=== PATIENT | female | born 1970 | race Caucasian/White ===

== ENCOUNTER 2016-08-17 04:43 | Emergency (ER) | payer OTHER ==
--- NOTE | 2016-08-17 04:51 | PDOC ---
History of Present Illness - History of Present Illness Initial Comments: 08/17/16 05:03 This 45-year-old woman with no past medical history except for gluten sensitivity presents with few hours history of sudden onset left flank pain. Patient states that she was awakened at approximately 3 AM with sharp pain in the left flank radiating to left side of the abdomen. This was accompanied by nausea without vomiting. She denies fever/chills/diarrhea. She has had no dysuria/hematuria/urinary urgency. No chest pain, cough or shortness of breath Although pain became somewhat less severe, she called her PMD who suggested she proceed to the ER. No recent travel or sick contacts. No unusual food ingestion. Recent history notable for abdominal bloating over the last few days. She had rectal urgency yesterday and was incontinent is a small amount of loose stool. She denies any other episodes of frequent or loose stools in recent days. No significant past medical history except for gluten sensitivity On no medications NO KNOWN DRUG ALLERGIES <Chasidy Ernst Last Filed: 08/17/16 06:59> <Bakari Richard Last Filed: 08/17/16 10:10> - General Chief Complaint: Pain, Acute Stated Complaint: LEFT FLANK PAIN RADIATING INTO ABDOMEN Time Seen by Provider: 08/17/16 04:49 Past History <Chasidy Ernst - Last Filed: 08/17/16 06:59> <Bakari Richard Last Filed: 08/17/16 10:10> - Past Medical History Allergies/Adverse Reactions: Allergies Allergy/AdvReac Type Severity Reaction Status Date / Time No Known Allergies Allergy Verified 08/17/16 04:45 Home Medications: Ambulatory Orders NK [No Known Home Medication] 08/17/16 Review of Systems - Review of Systems Able to Perform ROS?: Yes Comments:: 12 point review of systems is negative except for what is noted in the history of present illness <Chasidy Ernst Last Filed: 08/17/16 06:59> *Physical Exam - Physical Exam Comments: GENERAL: The patient is awake, alert, and fully oriented, in mild distress secondary to flank pain. Vital signs as noted. HEAD: Normal with no signs of trauma. EYES: Pupils equal, round and reactive to light, extraocular movements intact, sclera anicteric, conjunctiva clear with no pallor. ENT: moist mucous membranes. Ears normal, nares patent, oropharynx clear without exudates. NECK: Normal range of motion, supple without lymphadenopathy, JVD, or masses. LUNGS: Breath sounds equal, clear to auscultation bilaterally. No wheeze/ crackles. HEART: Regular rate and rhythm, normal S1 and S2 without murmur or rub. ABDOMEN: Soft/nondistended. Mild left lower quadrant tenderness without peritoneal signs. BS wnl. No guarding or rebound. No palpable masses. No hepatosplenomegaly. Moderate left CVA tenderness EXTREMITIES: Normal range of motion, no edema. No clubbing or cyanosis. No cords, erythema, or tenderness. NEUROLOGICAL: Cranial nerves II through XII grossly intact. Normal speech, normal gait. PSYCH: Normal mood, normal affect. SKIN: Warm, Dry, normal turgor, no rashes or lesions noted. <Chasidy Ernst - Last Filed: 08/17/16 06:59> - Vital Signs Last Vital Signs Temp Pulse Resp BP Pulse Ox 97.7 F 69 16 131/76 100 08/17/16 04:47 08/17/16 04:47 08/17/16 04:47 08/17/16 04:47 08/17/16 04:47 <Bakari Richard - Last Filed: 08/17/16 10:10> ED Treatment Course - LABORATORY CBC & Chemistry Diagram: 08/17/16 05:05 08/17/16 05:05 <Chasidy Ernst - Last Filed: 08/17/16 06:59> - LABORATORY CBC & Chemistry Diagram: 08/17/16 05:05 08/17/16 05:05 - ADDITIONAL ORDERS Additional order review: Laboratory Results 08/17/16 08/17/16 08/17/16 05:05 05:05 05:05 Sodium 140 Potassium 3.6 Chloride 104 Carbon Dioxide 27 Anion Gap 9 BUN 13 Creatinine 0.8 Creat Clearance w eGFR > 60 Random Glucose 95 Calcium 8.8 Total Bilirubin 0.4 AST 27 ALT 40 Alkaline Phosphatase 53 Total Protein 6.5 Albumin 4.0 Urine Color Yellow Urine Appearance Clear Urine pH 5.0 Ur Specific Jal 1.027 Urine Protein Negative Urine Glucose (UA) Negative Urine Ketones 1+ H Urine Blood Negative Urine Nitrite Negative Urine Bilirubin Negative Urine Urobilinogen Negative Ur Leukocyte Esterase Negative Urine HCG, Qual Negative 08/17/16 05:05 RBC 3.89 MCV 93.7 MCHC 33.2 RDW 13.4 MPV 10.2 Neutrophils % 58.8 Lymphocytes % 33.0 Monocytes % 7.0 Eosinophils % 0.5 Basophils % 0.7 - Medications Given in the ED: ED Medications Discontinued Medications Generic Name Dose Route Start Last Admin Trade Name Duranq PRN Reason Stop Dose Admin Sodium Chloride 1,000 mls @ 1,000 mls/hr 08/17/16 05:00 08/17/16 05:13 Normal Saline - IV 08/17/16 05:59 1,000 mls/hr ASDIR STA Administration Ketorolac Tromethamine 30 mg 08/17/16 05:00 08/17/16 05:14 Toradol Injection - IVPUSH 08/17/16 05:01 30 mg ONCE ONE Administration <Bakari Richard J - Last Filed: 08/17/16 10:10> Progress Note - Progress Note Progress Note: 45-year-old woman presents by ambulance with a few hour history of sharp left flank pain radiating to the left mid abdomen. This is initially accompanied by nausea which has since resolved. Pain is still present although somewhat milder than on presentation. Exam notable for moderate left CVA tenderness and mild to moderate left lower quadrant tenderness. There are no peritoneal irritation signs and no distention/masses on abdominal exam. Differential diagnosis includes renal colic /ureteral stone/diverticulitis/ other colitis (especially in light of her bloating/rectal urgency in the last few days) CBC/chemistry profile/PGU/UA will be sent Toradol 30 mg IV as well as IV normal saline 1 L will be administered. <Chasidy Ernst J - Last Filed: 08/17/16 06:59> - Progress Note Progress Note: The patient's pain has been completely resolved for some time now. Her abdomen is soft and nontender. Discussed CT results with Dr. Matson. There is no evidence of any kidney or urinary tract abnormality, or intestinal abnormality including diverticulitis. There is a cystic structure that appears to be in the area of the left adnexa or ovary, but with no free fluid. This may be an incidental finding, or may be the cause of the pain if there is minor leakage. This was discussed with the patient. She is aware of the cyst and the need for follow-up with her [employer] physician. She has an [employer], and agrees to follow-up in a timely fashion with discussion of the cyst and further examination and testing is necessary. She is fully ambulatory and in no pain upon discharge and agrees to follow-up as directed. In case this is GI related, clear liquids and light diet were recommended for another 24 hours. Return to the emergency room <Bakari Richard - Last Filed: 08/17/16 10:10> Medical Decision Making - Medical Decision Making 08/17/16 06:18 Patient feeling better after 30 mg Toradol IV. 1 L of normal saline has been given IV. Urinalysis shows no evidence of hematuria. Specific gravity is 1.027 but no other abnormalities on dipstick other than 1+ ketones CBC normal without elevation of white blood cell count or other abnormalities Because of patient's significant tenderness on exam, abdominal/pelvic CT with oral contrast will be performed to evaluate for hydronephrosis after passage of stone,acute diverticulitis or other acute intra-abdominal processes 08/17/16 06:34 Chemistry profile is essentially normal The patient is tolerating oral contrast without recurrence of nausea. 08/17/16 06:59 Case signed out to Dr Richard at end of shift. <Chasidy Ernst - Last Filed: 08/17/16 06:59> *DC/Admit/Observation/Transfer <Chasidy Ernst - Last Filed: 08/17/16 06:59> - Discharge Dispostion Admit: No <Bakari Richard - Last Filed: 08/17/16 10:10> Diagnosis at time of Disposition: Abdominal pain Qualifiers: Abdominal location: unspecified location Qualified Code(s): R10.9 - Unspecified abdominal pain - Discharge Dispostion Disposition: HOME Condition at time of disposition: Improved - Referrals Referrals: Elvia Matias MD [Primary Care Provider] - 24 hours - Patient Instructions Printed Discharge Instructions: DI for Ovarian Cyst, DI for Viral Gastroenteritis -- Adult Additional Instructions: CT scan shows no abnormality of the kidneys, urinary tract, or intestines. The only significant finding is a moderately sized cyst that appears to be in the area of the left ovary or tube. This cyst may be responsible for your pain, if there has been a minor amount of leakage, but there is no fluid in the pelvis which would suggest a large amount of leakage. Ultimately, the cyst may be an incidental finding and her pain may be caused by a mild gastrointestinal illness, sometimes referred to as a "stomach virus". If this is the case, it should resolve on its own in 1-2 days. Eat lightly, drink plenty of fluids, and return to the ER or
[2016-08-17 04:52] VITALS: BP 131/76; PULSE 69; TEMP 97.7; BMI 19.3
[2016-08-17] MEDS ORDERED: KETOROLAC TROMETHAMINE 30 MG/1 ML VIAL ONE (05:08)
[2016-08-17] MEDS: SODIUM CHLORIDE 1,000 ML IV STA (05:13)
[2016-08-17] MEDS: KETOROLAC TROMETHAMINE 30 MG/1 ML VIAL IVPUSH ONE (05:14)
[2016-08-17 05:56] LABS: BASOPHIL 0.7 % (0-2.0); EOSINOPHIL 0.5 % (0-4.5); MCH 31.1 pg (25.7-33.7); MCHC 33.2 g/dl (32.0-36.0); MEAN CELL VOLUME 93.7 fl (80-96); MEAN PLT VOLUME 10.2 fl (7.5-11.1); NEUTROPHILS 58.8 % (42.8-82.8); PLATELET COUNT 126 K/MM3 (134-434); RDW 13.4 % (11.6-15.6); WHITE BLOOD COUNT 3.5 K/mm3 (4.0-10.0)
[2016-08-17 06:00] LABS: URINE APPEARANCE CLEAR; URINE BILIRUBIN NEGATIVE (NEGATIVE); URINE BLOOD NEGATIVE (NEGATIVE); URINE COLOR YELLOW; URINE GLUCOSE (UA) NEGATIVE (NEGATIVE); URINE KETONE 1+ (NEGATIVE); URINE LEUK ESTERASE NEGATIVE (NEGATIVE); URINE NITRITE NEGATIVE (NEGATIVE); URINE PROTEIN NEGATIVE (NEGATIVE); URINE UROBILINOGEN NEGATIVE E.U./dl (0.2-1.0)
[2016-08-17 06:21] LABS: ALK PHOS 53 U/L (45-117); ANION GAP 9 (8-16); BILIRUBIN,TOTAL 0.4 mg/dL (0.2-1.0); CALCIUM 8.8 mg/dL (8.5-10.1); CO2 27 mmol/L (21-32); COCKROFT - GAULT 84.9405; CREATININE 0.8 mg/dL (0.55-1.02); GLUCOSE,RANDOM 95 mg/dL (74-106); SGOT/AST 27 U/L (15-37); SGPT/ALT 40 U/L (12-78); TOT PROT 6.5 g/dl (6.4-8.2)
== END 2016-08-17 10:15 | disposition home or self-care (01) ==
LOC: FER 04:43
PROC: 3E0333Z Introduction of Anti-inflammatory into Peripheral Vein, Percutaneous Approach (ICD-10-PCS; principal; 2016-08-17)
PROC: 3E0337Z Introduction of Electrolytic and Water Balance Substance into Peripheral Vein, Percutaneous Approach (ICD-10-PCS; 2016-08-17)
DX: R10.9 Unspecified abdominal pain (principal)
CPT/HCPCS: 36415; 74177-TC; 80053; 81003; 84703; 85025; 99283-25

== ENCOUNTER 2020-05-20 10:18 | Emergency (ER) | payer OTHER ==
[2020-05-20 10:30] VITALS: BP 130/96; PULSE 89; TEMP 99.3; BMI 19.9
[2020-05-20] MEDS ORDERED: ACETAMINOPHEN 1000 MG/100 ML VIAL (NON FORMULARY) IVPB ONE (11:18)
[2020-05-20] MEDS ORDERED: SODIUM CHLORIDE 0.9% 500 ML INFUS.BAG IV ONE (11:18)
[2020-05-20] MEDS ORDERED: ACETAMINOPHEN INJECTION 100 ML IVPB ONE (11:23)
[2020-05-20 11:27] LABS: BASO % 1.8 % (0-2.0); EOS % 0.3 % (0-4.5); HEMATOCRIT 39.2 % (32.4-45.2); HEMOGLOBIN 13.1 GM/dl (10.7-15.3); LYMPH % 28.3 % (8-40); MCH 30.5 pg (25.7-33.7); MCHC 33.5 g/dl (32.0-36.0); MEAN CELL VOLUME 91.1 fl (80-96); MEAN PLT VOLUME 9.3 fl (7.5-11.1); MONO % 7.3 % (3.8-10.2); NEUT % 62.3 % (42.8-82.8); PLATELET COUNT 187 K/MM3 (134-434); RBC 4.31 M/mm3 (3.60-5.2); RDW 12.4 % (11.6-15.6); WHITE BLOOD COUNT 3.9 K/mm3 (4.0-10.8)
[2020-05-20 11:33] LABS: ALBUMIN 4.6 g/dl (3.4-5.0); BILIRUBIN,TOTAL 0.8 mg/dl (0.2-1); CALCIUM 9.2 mg/dl (8.5-10); CREATININE 0.7 mg/dl (0.55-1.3); POTASSIUM 4.2 mmol/L (3.5-5.1); TOT PROT 6.8 g/dl (6.4-8.2)
[2020-05-20] MEDS: morphine CARPU-JECT 4 MG/1 ML DISP.SYRIN IVPUSH ONE ×2 (12:59→13:03)
[2020-05-20] MEDS ORDERED: morphine SULFATE 4 MG/ML VIAL ONE (13:00)
== END 2020-05-20 14:01 | disposition left against medical advice (07) ==
LOC: FER 10:18
PROC: 3E0333Z Introduction of Anti-inflammatory into Peripheral Vein, Percutaneous Approach (ICD-10-PCS; principal; 2020-05-20)
DX: R10.9 Unspecified abdominal pain (principal)
CPT/HCPCS: 36415; 74177-TC; 80053; 81003; 85025; 87086; 99285-25; J0131